=== PATIENT | female | born 1945 | race Caucasian/White ===

== ENCOUNTER 2016-12-28 10:26 | Day surgery (SDC) | payer MEDICARE, OTHER ==
--- NOTE | ~2016-12-28 | EGD ---
EGD REPORT [facility] [address] [address] NAME: KARLA WAYNE : [birth year] STATUS : REG [facility] [place] PAT#: [id number] AGE: 71 ADM/REG DATE : 12/28/16 MR#: [id number] REPORT SERV DATE: 12/28/16 DICTATED BY: DATE: REPORT STATUS : Draft TRANSCRIBED BY: [employer] DATE: 12/28/16 [facility] Patient Name: Karla Wayne Date of : 1945 Attending MD: FLORENCIA FONSECA MD Procedure Date No Time: 12/28/2016 Procedure: Upper GI endoscopy Indications: Epigastric abdominal pain Referring MD: ELIO BURTONCARLOS Medicines: Monitored Anesthesia Care Complications: No immediate complications. Procedure: Pre-Anesthesia Assessment: - ASA Grade Assessment: III - A patient with severe systemic disease. After obtaining informed consent, the endoscope was passed under direct vision. Throughout the procedure, the patient's blood pressure, pulse, and oxygen saturations were monitored continuously. The GIF H190 [id number] was introduced through the mouth, and advanced to the third part of duodenum. The upper GI endoscopy was accomplished without difficulty. The patient tolerated the procedure well. Findings: A small hiatus hernia was present. The Z-line was irregular and was found 36 cm from the incisors. Biopsies were taken with a cold forceps for histology. No other significant abnormalities were identified in a careful examination of the esophagus. There is no endoscopic evidence of areas of erosion, ulcerations or varices in the entire esophagus. Extrinsic compression on the stomach was found in the cardia consistent with previous lap band. No other significant abnormalities were identified in a careful examination of the stomach. There is no endoscopic evidence of inflammation, mucosal abnormalities, ulceration or varices in the entire examined stomach. The examined duodenum was normal. There is no endoscopic evidence of inflammation, mucosal abnormalities or ulceration in the entire examined duodenum. The cardia and gastric fundus were normal on retroflexion. No erosion of the band was found. Impression: - Hiatus hernia. - Z-line irregular, 36 cm from the incisors. Biopsied. EGD REPORT [address] [address] NAME: KARLA WAYNE : [birth year] STATUS : REG [facility] [place] PAT#: [id number] AGE: 71 ADM/REG DATE : 12/28/16 MR#: [id number] REPORT SERV DATE: 12/28/16 DICTATED BY: DATE: REPORT STATUS : Draft TRANSCRIBED BY: [employer] DATE: 12/28/16 - Extrinsic compression in the cardia. - Normal examined duodenum. Recommendation: - Patient has a contact number available for emergencies. The signs and symptoms of potential delayed complications were discussed with the patient. Return to normal activities tomorrow. Written discharge instructions were provided to the patient. - Return to previous diet. - Discharge patient to home. - Continue present medications. - Await pathology results. Procedure Code(s): --- Professional --- 94988, Esophagogastroduodenoscopy, flexible, transoral; with biopsy, single or multiple Diagnosis Code(s): --- Professional --- K44.9, Diaphragmatic hernia without obstruction or gangrene K22.8, Other specified diseases of esophagus K31.89, Other diseases of stomach and duodenum R10.13, Epigastric pain CPT copyright 2013 [employer]. All rights reserved. The codes documented in this report are preliminary and upon youth pastor review may be revised to meet current compliance requirements. FLORENCIA FONSECA MD 12/28/2016 11:26 AM This report has been signed electronically. Number of Addenda: 0 Note Initiated On: 12/28/2016 11:13 AM Scope Withdrawal Time 0 hours 0 minutes 0 seconds [id number] [place] [id number]
--- NOTE | ~2016-12-28 | EGD ---
EGD REPORT [facility] [address] [address] NAME: KARLA WAYNE : [birth year] STATUS : REG [facility] [place] PAT#: [id number] AGE: 71 ADM/REG DATE : 12/28/16 MR#: [id number] REPORT SERV DATE: 12/28/16 DICTATED BY: DATE: REPORT STATUS : Draft TRANSCRIBED BY: [employer] DATE: 12/28/16 [facility] Patient Name: Karla Wayne Date of : 1945 Attending MD: FLORENCIA FONSECA MD Procedure Date No Time: 12/28/2016 Procedure: Colonoscopy Indications: Abdominal pain, Clinically significant diarrhea of unexplained origin Referring MD: ELIO BURTON Medicines: Monitored Anesthesia Care Complications: No immediate complications. Procedure: Pre-Anesthesia Assessment: - ASA Grade Assessment: III - A patient with severe systemic disease. After I obtained informed consent, the scope was passed under direct vision. Throughout the procedure, the patient's blood pressure, pulse, and oxygen saturations were monitored continuously. The PCF [id number] was introduced through the anus and advanced to the cecum, identified by appendiceal orifice and ileocecal valve. The colonoscopy was performed without difficulty. The patient tolerated the procedure well. The quality of the bowel preparation was excellent. Findings: The perianal and digital rectal examinations were normal. Two sessile polyps were found at the hepatic flexure. The polyps were diminutive in size. These polyps were removed with a cold biopsy forceps. Resection and retrieval were complete. Two sessile polyps were found at the splenic flexure. The polyps were diminutive in size. These polyps were removed with a cold biopsy forceps. Resection and retrieval were complete. No other significant abnormalities were identified in a careful examination of the remainder of the colon. There is no endoscopic evidence of erythema, mass, ulcerations or angioectasia in the entire colon. Biopsies were taken with a cold forceps from the entire colon for evaluation of microscopic colitis. No additional abnormalities were found on retroflexion. Impression: - Two diminutive polyps at the hepatic flexure. Resected and retrieved. - Two diminutive polyps at the splenic flexure. Resected and retrieved. EGD REPORT [address] [place]. [address] NAME: KARLA WAYNE : [birth year] STATUS : REG [facility]#: [id number] AGE: 71 ADM/REG DATE : 12/28/16 MR#: [id number] REPORT SERV DATE: 12/28/16 DICTATED BY: DATE: REPORT STATUS : Draft TRANSCRIBED BY: [employer] DATE: 12/28/16 Recommendation: - Patient has a contact number available for emergencies. The signs and symptoms of potential delayed complications were discussed with the patient. Return to normal activities tomorrow. Written discharge instructions were provided to the patient. - Regular diet. - Patient has a contact number available for emergencies. The signs and symptoms of potential delayed complications were discussed with the patient. Return to normal activities tomorrow. Written discharge instructions were provided to the patient. - Discharge patient to home. - Continue present medications. - Await pathology results. - Repeat colonoscopy in 5 years for surveillance based on pathology results. - Start Pepto Bismol 2 tabs or 2 TBSP by mouth 4 times daily for 2 weeks then discontinue. Procedure Code(s): --- Professional --- 34374, Colonoscopy, flexible, proximal to splenic flexure; with biopsy, single or multiple Diagnosis Code(s): --- Professional --- D12.3, Benign neoplasm of transverse colon R10.9, Unspecified abdominal pain R19.7, Diarrhea, unspecified CPT copyright 2013 [employer]. All rights reserved. The codes documented in this report are preliminary and upon jointer operator review may be revised to meet current compliance requirements. FLORENCIA FONSECA MD 12/28/2016 11:45 AM This report has been signed electronically. Number of Addenda: 0 Note Initiated On: 12/28/2016 10:30 AM Scope Withdrawal Time 0 hours 10 minutes 37 seconds [id number] [place] [id number]
[~2016-12-28 10:26] MED LIST: ARICEPT10 PO; CRESTOR20 MG PO; GLUCOPHAGE1000 MG PO; HYGROTON 25 MG25 MG; LAMICTAL200 MG PO; LEVOTHYROXIN100 MCG PO; NEUR300 PO; PRIN2.5 PO; PROTONIX PO; VICTOZA18 MG/3 ML SC; ZYRTEC ALLGY10 MG PO; [UNRECOGNIZED DRUG - OTHER]
[2017-04-21] MEDS ORDERED: VITAMIN D2 PO (09:31)
== END 2016-12-28 23:59 | disposition home health service (06) ==
LOC: DMU 10:26
PROVIDERS: Internal Medicine Gastroenterology
PROC: 0DBE8ZX Excision of Large Intestine, Via Natural or Artificial Opening Endoscopic, Diagnostic (ICD-10-PCS; 2016-12-28)
PROC: 0DB68ZX Excision of Stomach, Via Natural or Artificial Opening Endoscopic, Diagnostic (ICD-10-PCS; principal; 2016-12-28 11:30)
PROC: 0DBL8ZX Excision of Transverse Colon, Via Natural or Artificial Opening Endoscopic, Diagnostic (ICD-10-PCS; 2016-12-28 11:30)
DX: K21.0 Gastro-esophageal reflux disease with esophagitis (principal); K63.5 Polyp of colon; K44.9 Diaphragmatic hernia without obstruction or gangrene; I10 Essential (primary) hypertension; E11.9 Type 2 diabetes mellitus without complications; G47.33 Obstructive sleep apnea (adult) (pediatric); Z99.81 Dependence on supplemental oxygen
CPT/HCPCS: 82962; 88305